=== PATIENT | female | born 1975 | race Caucasian/White ===

== ENCOUNTER 2017-02-25 23:07 | Emergency (ER) | payer OTHER ==
[~2017-02-25] VITALS: Ht 149.9 cm; Wt 49.9 kg
[2017-02-25 23:08] VITALS: BP 115/76
[2017-02-25] MEDS ORDERED: BUPIVACAINE 0.25% ONE (23:37)
[2017-02-25] MEDS ORDERED: LIDOCAINE 1%, 20ML ONE (23:37)
[2017-02-26] MEDS ORDERED: LIDOCAINE 1%, 20ML SQ ONE
[2017-02-26] MEDS ORDERED: BUPIVACAINE 0.25% INFIL ONE
== END 2017-02-25 23:59 | disposition home or self-care (01) ==
LOC: ED 23:45
DX: K04.7 Periapical abscess without sinus (principal); F12.10 Cannabis abuse, uncomplicated
CPT/HCPCS: 64400

== ENCOUNTER 2018-12-16 06:16 | Emergency (ER) | payer MEDICAID ==
[~2018-12-16] VITALS: Ht 149.9 cm; Wt 50.4 kg
--- NOTE | 2018-12-16 06:33 | NUR ---
SORE THROAT X2 WEEKS "I AM HAVING A HARD TIME SWALLOWING." NO AIRWAY COMPROMISE VOMITING X1 DAY HEADACHE X1 DAY PT ALSO REPORTS RIGHT SIDED CHEST PAIN X2 WEEKS
[2018-12-16] MEDS ORDERED: HYDROcodone/APAP 7.5-325MG/15ML UDC ONE ×2 (06:55)
[2018-12-16] MEDS ORDERED: DEXAMETHASONE 4 MG TABLET ONE (06:57)
[2018-12-16] MEDS ORDERED: HYDROcodone/APAP 7.5-325MG/15ML UDC PO PRN (07:00)
[2018-12-16] MEDS ORDERED: DEXAMETHASONE 4 MG TABLET PO ONE (07:00)
[2018-12-16] MEDS ORDERED: ONDANSETRON ODT 4 MG PO ONE (07:00)
--- NOTE | 2018-12-16 07:14 | NUR ---
REC BS REPORT PT RESTING AT THIS TIME NADN
[2018-12-16 08:14] VITALS: BP 138/78
== END 2018-12-16 08:44 | disposition home or self-care (01) ==
LOC: ED 08:24
DX: J02.0 Streptococcal pharyngitis (principal); B34.9 Viral infection, unspecified; F17.200 Nicotine dependence, unspecified, uncomplicated
CPT/HCPCS: 71046; 87081; 87880; 93005; 99284

== ENCOUNTER 2018-12-18 08:17 | Emergency (ER) | payer MEDICAID ==
[~2018-12-18] VITALS: Ht 149.9 cm; Wt 49.9 kg
[2018-12-18 08:22] VITALS: BP 128/85
--- NOTE | 2018-12-18 08:51 | NUR ---
Patient/Caregiver given discharge instructions and they have confirmed that they understand the instructions. Patient ambulatory with steady gait.
== END 2018-12-18 08:53 | disposition home or self-care (01) ==
LOC: ED 08:50
DX: B34.9 Viral infection, unspecified (principal)
CPT/HCPCS: 90471; 99283